=== PATIENT | female | born 1995 | race Caucasian/White ===

== ENCOUNTER 2017-01-02 05:50 | Day surgery (SDC) | payer BC ==
[2017-01-02] MEDS ORDERED: Acetaminophen 500 MG Tab PO ONE (06:08)
[2017-01-02] MEDS ORDERED: cefOXitin 2 GM in Sodium Chloride 0.9% 50 ML IV ONE (06:08)
[2017-01-02] MEDS ORDERED: Bupivacaine 0.5%/EPINEPHrine 1:200,000 50 ML MDV ONE (06:50)
[2017-01-02] MEDS: Dextrose 5%-Lactated Ringers 1,000 ML IV SCH ×2 (07:19→19:39)
[2017-01-02] MEDS ORDERED: Naloxone 0.4 MG/ML SDV IVPUSH PRN (07:23)
[2017-01-02] MEDS ORDERED: HYDROmorphone/Normal Saline 15 MG/30 ML PCA IV PRN (07:23)
[2017-01-02] MEDS ORDERED: Propofol 200 MG/20 ML SDV ONE (07:32)
[2017-01-02] MEDS ORDERED: Neostigmine Methylsulfate 1 MG/ML 5 ML Syringe ONE (07:32)
[2017-01-02] MEDS ORDERED: Glycopyrrolate 0.2 MG/ML 5 ML MDV ONE (07:32)
[2017-01-02] MEDS ORDERED: Rocuronium 50 MG/5 ML Vial ONE (07:32)
[2017-01-02] MEDS ORDERED: Dexamethasone 4 MG/ML SDV ONE (07:32)
[2017-01-02] MEDS ORDERED: Ondansetron 4 MG/2 ML SDV ONE (07:32)
[2017-01-02] MEDS ORDERED: fentaNYL 250 MCG/5 ML SDV ONE ×2 (07:32→08:21)
[2017-01-02] MEDS ORDERED: Naloxone 0.4 MG/ML SDV IV PRN (07:39)
[2017-01-02] MEDS: cefOXitin 2 GM in Sodium Chloride 0.9% 50 ML IV ONE ×2 (08:21→12:23)
[2017-01-02] MEDS ORDERED: Ondansetron 4 MG/2 ML SDV IVPUSH PRN (11:00)
[2017-01-02] MEDS ORDERED: Pantoprazole 40 MG Vial IVPUSH SCH (14:00)
[2017-01-02] MEDS: cefOXitin 2 GM in Sodium Chloride 0.9% 50 ML IV SCH ×2 (14:32→19:39)
[2017-01-02] MEDS: Acetaminophen/HYDROcodone 325-5 MG Tab PO PRN (20:39)
[2017-01-03] MEDS: cefOXitin 2 GM in Sodium Chloride 0.9% 50 ML IV SCH ×2 (01:11→08:06)
[2017-01-03] MEDS: Acetaminophen/HYDROcodone 325-5 MG Tab PO PRN ×2 (02:03→08:16)
--- NOTE | 2017-01-03 10:01 | DISCH ---
ADMISSION DIAGNOSIS: Cholelithiasis and cholecystitis. DISCHARGE DIAGNOSIS: Laparoscopic cholecystectomy, date 01/02/2017. HISTORY: Antonina Gonzalez has had a 6-month history of abdominal pain on and off. After preoperative evaluation and discussion of possible risks and possible complications, she wished to proceed with surgical procedure. HOSPITAL COURSE: Antonina had her surgery on 01/02/2017. She had no operative complications. On postop day #1, her pain is managed. Activity was good. She tolerated diet well and was able to be discharged to home. PHYSICAL EXAMINATION: GENERAL: Antonina Gonzalez is a 21-year-old female. VITAL SIGNS: Height is 5 feet 5 inches, weight is 150 pounds. TPR is 97.9, 78, 16. Blood pressure 117/69. HEENT: Negative. NECK: Supple. HEART: Regular rate and rhythm. LUNGS: Clear. ABDOMEN: Dressings dry and intact. Abdominal binder is on. EXTREMITIES: Without peripheral edema. DISPOSITION: Discharged to home. CONDITION: Stable and improving. FOLLOWUP APPOINTMENT: With Gregg Harley M.D., on 01/08/2017 at 8:30 a.m. HOME MEDICATIONS: [place] 5/325 mg 1 tablet every 3 hours p.r.n. pain, #40. She is to resume her home medications of calcium carbonate 500 mg daily, vitamin D3 2000 international units daily, ethinyl estradiol and drospirenone 3 mg/0.02 mg tablets use as directed, Kyolic Garlic Extract 1 tablet daily, probiotic 1 tablet daily, multivitamin 1 tablet daily, and Xanax mg daily. DIET: Usual diet as tolerated. Drink 8 to 10 glasses of water a day. ACTIVITY: No lifting greater than 10 pounds for 2 weeks. Activity, walk 6 to 8 times daily. Driving, do not drive on pain medication. Shower/bathing, may shower. DISCHARGE INSTRUCTIONS: Notify provider if fever, increased pain, swelling, redness, drainage, nausea or vomiting. Wound incision care: Keep site clean and dry. Wear abdominal binder for 2 weeks and then as tolerated. SPECIAL INSTRUCTION: Use incentive spirometer 10 times every hour while awake for 1 week.
--- NOTE | 2017-01-05 12:19 | OR ---
DATE OF PROCEDURE: 01/02/2017 PREOPERATIVE DIAGNOSIS: Biliary dyskinesia. POSTOPERATIVE DIAGNOSES: 1. Biliary dyskinesia associated with cholelithiasis. 2. Umbilical hernia. OPERATIVE PROCEDURES: Diagnostic laparoscopy with; 1. Laparoscopic cholecystectomy (11803). 2. Laparoscopic repair of umbilical hernia (11751). ANESTHESIA: General. BAND SAW OPERATOR CAKE CUTTING: Pari Antony PA-C. INDICATIONS FOR PROCEDURE: This is a 21-year-old female presenting with increasingly symptomatic gallbladder disease. CCK-stimulated HIDA scan showed below normal ejection fraction along with the CCK stimulation creating a reproduction of her symptoms. The plan is to proceed with a laparoscopic cholecystectomy. Potential risks including bleeding, infection, injury to underlying viscera, problems with persistent or recurrent pain overtime, as well as the remote possibility of cardiopulmonary, septic, or hemorrhagic complications leading to were discussed, and the patient wishes to proceed. DETAILS OF PROCEDURE: The patient was taken to the operating room and placed in a supine position. After general endotracheal anesthesia was induced, the abdomen was prepped and draped. Initially, a transverse epigastric incision was made and peritoneal cavity entered under direct vision with an Optiview trocar and inflated to 15 mmHg pressure with CO2. Laparoscope was reinserted and no underlying trocar insertion site injuries were seen. With the camera in the epigastric site, the area of the umbilicus was identified. The patient was noted to have a small umbilical hernia. This was visualized both from within and then externally could be palpated. A transverse incision just below the umbilicus was made and carried down through the skin and subcutaneous tissue. Directly through the herniation, a 12-mm trocar was placed and the camera brought down into that location. One additional 5 mm trocar was placed in the right upper quadrant. The gallbladder was noted to be quite distended and mckeon in color, and edematous consistent with an ongoing chronic cholecystitis. The gallbladder was retracted anteriorly and laterally and dissection began on the gallbladder neck with a Harmonic scalpel and continued around the gallbladder neck and cystic duct junction. Once that area was well delineated as well as the adjacent cystic artery, both structures were clipped 3 times proximally and once distally, and the gallbladder neck and cystic duct junction divided. The gallbladder was dissected off the gallbladder bed using Harmonic scalpel. This was then delivered from the epigastric trocar site. The patient was noted to have 2 moderately sized stones, both of which were given to the patient postoperatively. The area of dissection was then inspected. No bleeding or bile leaks were seen. A drain was felt not to be necessary. The camera was then brought back up to the epigastric site. The trocar at the umbilical hernia site was then removed, and the hernia was then closed with a series of 0 Vicryl sutures. Once these were placed in a transverse closure orientation, the remaining trocars were removed. The epigastric trocar site passed obliquely through the musculature and was not needing closure at fascia level. Once the peritoneal cavity was deflated, the umbilical hernia site sutures were tied, and the skin at each incision was then closed with 4-0 Vicryl skin stitch. Dressing was applied. The patient was taken to the recovery room in a satisfactory condition. Physician curriculum assistant, Pari Antony, played an essential role in assisting in this case, helping to position the patient, retract structures as needed, as well as suturing and cutting sutures when indicated. Her presence improved patient safety and decreased the operative time. Gregg Harley MD /[id number]
== END 2017-01-03 08:53 | disposition home or self-care (01) ==
LOC: JP.SDS 05:50 → JP.2SS 08:45 → JP.SDS 01-03 08:53
PROVIDERS: ATTEND Surgery
DX: K42.9 Umbilical hernia without obstruction or gangrene (principal); K81.1 Chronic cholecystitis; K21.9 Gastro-esophageal reflux disease without esophagitis
CPT/HCPCS: 36415; 47562; 49652; 80053; 82247; 84075; 85027; 94762; A9270; C9113; J0694; J1100; J1170; J2405; J2704; J2710; J3010; J7042; J7050; 88304